=== PATIENT | female | born 1985 | race African-American/Black ===

== ENCOUNTER 2019-03-05 14:27 | Inpatient (IN) ==
[2019-03-05] MEDS ORDERED: ONDANSETRON 4 MG/2 ML VIAL IV PRN (15:58)
[2019-03-05] MEDS ORDERED: BUTORPHANOL 2 MG/ML VIAL IV PRN (15:58)
[2019-03-05] MEDS ORDERED: ACETAMINOPHEN 325 MG TABLET PO PRN (15:58)
[2019-03-05] MEDS ORDERED: OXYTOCIN/LR 20 UNIT/1,000 ML BAG IV SCH (16:00)
[2019-03-05] MEDS ORDERED: DINOPROSTONE VAG GEL 10 MG SYRINGE VAG PRN (16:02)
[2019-03-05 16:25] LABS: Basophils % 0.4 % (0.0-0.8); Eosinophils % 0.3 % (0.00-10.9); Hematocrit 37.6 VOL% (35.7-47.0); Hemoglobin 12.1 GM/DL (12.0-16.0); Immature Granulocytes % 0.7 %; Immature Granulocytes Absolute 0.05 #; Lymphocytes # 1.3 10*3/uL (1.4-4.0); Lymphocytes % 19.7 % (21.3-54.2); Mean Corpuscular HGB Conc 32.2 GM/DL (32-36); Mean Corpuscular Volume 86.4 FL (87-102); Mean Platelet Volume 10.3 FL (9.6-12.0); Monocytes % 9.4 % (1.7-12.7); Neutrophils % 69.5 % (38.7-73.9); Platelet Count 242 T/CUMM (130-400); Red Blood Count 4.35 MC/CUMM (3.8-5.5); Red Cell Distribution Width 14.7 % (9.3-17.3); White Blood Count 6.8 T/CUMM (4-12)
[2019-03-05 16:48] LABS: Albumin 2.9 G/DL (3.4-5.0); Bilirubin,Total 0.5 MG/DL (0.2-1.0); Calcium 9.2 MG/DL (8.5-10.1); Osmolality,Calculated 270.7 MOS/KG (273-304); Total Protein 7.1 G/DL (6.4-8.3); Uric Acid 3.4 MG/DL (2.6-6.0)
[2019-03-05] MEDS ORDERED: LACTATED RINGERS 1,000 ML IV ONE (18:45)
[2019-03-05] MEDS ORDERED: hydrOXYzine HCL 25 MG/1 ML VIAL IM PRN (18:45)
[2019-03-05] MEDS ORDERED: ePHEDrine 50 MG/ML AMP IV PRN (18:45)
[2019-03-05] MEDS ORDERED: CITRIC ACID/SODIUM CITRATE 30 ML UDCUP PO ONE (18:45)
[2019-03-05] MEDS ORDERED: diphenhydrAMINE 50 MG/1 ML VIAL IV PRN ×2 (18:45)
[2019-03-05] MEDS ORDERED: ONDANSETRON 4 MG/2 ML VIAL IV ONE (18:45)
[2019-03-05] MEDS ORDERED: NALOXONE 0.4 MG/ML VIAL IV PRN (18:45)
[2019-03-05] MEDS ORDERED: PROMETHAZINE 25 MG/1 ML VIAL IM ONE (18:45)
[2019-03-05] MEDS ORDERED: FAMOTIDINE 20 MG/2 ML VIAL IV ONE (18:45)
[2019-03-05] MEDS ORDERED: fentaNYL 2 MCG/ROPIV 0.2% EPID 100 ML EPIDURAL SCH (19:00)
[2019-03-05] MEDS: LACTATED RINGERS 1,000 ML IV SCH ×2 (20:22→21:14)
[2019-03-05 23:32] LABS: Apearance,Urine CLEAR (Clear); Bacteria,Urine Occasional /HPF (Few); Bilirubin,Urine Negative (Negative); Blood, Urine Negative (Negative); Glucose,Urine (UA) Negative (Negative); Hyaline Casts,Urine 12 /LPF (0-3); Ketones,Urine 80 mg/dL (Negative); Mucus,Urine Many /LPF (Occasional); Nitrite,Urine Negative (Negative); Protein,Urine 30 MG/DL; RBC,Urine 1 /HPF (0-4); Squamous Epithelial Cell,Urine Occasional /HPF (0-10); Urine Color Yellow (Yellow); Urine Specific Gravity 1.019 (1.001-1.035); WBC,Urine 5 /HPF (0-6)
[2019-03-06] MEDS ORDERED: OXYTOCIN/LR 20 UNIT/1,000 ML BAG IV SCH (02:00)
[2019-03-06] MEDS ORDERED: ALUMINUM/MAGNES/SIMETH MAX STR 30 ML UDCUP PO PRN (06:09)
[2019-03-06] MEDS: LACTATED RINGERS 1,000 ML IV SCH (07:12)
[2019-03-06] MEDS ORDERED: LIDOCAINE 1% 50 ML VIAL ONE (13:15)
[2019-03-06] MEDS ORDERED: METHYLERGONOVINE 0.2 MG/1 ML AMP ONE (13:16)
[2019-03-06] MEDS ORDERED: TRANEXAMIC ACID 1,000 MG/10 ML VIAL ONE (13:16)
[2019-03-06] MEDS ORDERED: OXYTOCIN/LR 20 UNIT/1,000 ML BAG IV ONE ×2 (13:16→18:49)
[2019-03-06] MEDS ORDERED: miSOPROStoL 200 MCG TABLET ONE (13:16)
[2019-03-06] MEDS ORDERED: CARBOPROST TROMETHAMINE 250 MCG/ML AMP IM ONE (13:16)
[2019-03-06 17:42] LABS: Cord Venous Blood HCO3 21.6 MMOL/L; Cord Venous Blood PCO2 42.9 MMHG; Cord Venous Blood PO2 20.1
[2019-03-06] MEDS ORDERED: oxyCODONE/ACETAMINOPHEN 5-325 MG TABLET PO PRN ×2 (18:49)
[2019-03-06] MEDS ORDERED: WITCH HAZEL PADS 100/JAR TOP PRN (18:49)
[2019-03-06] MEDS ORDERED: BISACODYL 10 MG SUPP RECTAL PRN (18:49)
[2019-03-06] MEDS ORDERED: ACETAMINOPHEN 325 MG TABLET PO PRN (18:49)
[2019-03-06] MEDS ORDERED: DIPH/TET/ACEL PERT BOOSTER VACCINE 0.5 ML VIAL IM ONE (18:49)
[2019-03-06] MEDS ORDERED: LANOLIN 50% CREAM 0.3 OZ TUBE TOP PRN (18:49)
[2019-03-06] MEDS ORDERED: HYDROCORTISONE 2.5% RECTAL CREAM 30 GM TUBE TOP PRN (18:49)
[2019-03-06] MEDS ORDERED: RHO(D) IMMUNE GLOBULIN 300 MCG SYRINGE IM ONE (18:49)
[2019-03-06] MEDS ORDERED: MEASLES/MUMPS/RUBELLA VACCINE 0.5 ML VIAL SUBCUT ONE (18:49)
[2019-03-06] MEDS ORDERED: BENZOCAINE 20%/MENTHOL 0.5% SPRAY 56 GM CAN TOP PRN (18:49)
[2019-03-06] MEDS: IBUPROFEN 800 MG TABLET PO PRN (19:14)
[2019-03-07] MEDS: DOCUSATE SODIUM 100 MG CAPSULE PO SCH ×3 (03:12→20:48)
[2019-03-07 05:57] LABS: Basophils % 0.2 % (0.0-0.8); Eosinophils % 0.2 % (0.00-10.9); Hematocrit 32.2 VOL% (35.7-47.0); Hemoglobin 10.6 GM/DL (12.0-16.0); Mean Corpuscular HGB Conc 32.9 GM/DL (32-36); Mean Platelet Volume 10.6 FL (9.6-12.0); Monocytes % 9.1 % (1.7-12.7); Neutrophils % 78.8 % (38.7-73.9); Platelet Count 217 T/CUMM (130-400); Red Blood Count 3.79 MC/CUMM (3.8-5.5); Red Cell Distribution Width 14.5 % (9.3-17.3); White Blood Count 16.8 T/CUMM (4-12)
[2019-03-07 05:58] LABS: Immature Granulocytes % 0.7 %; Immature Granulocytes Absolute 0.12 #; Lymphocytes # 1.9 10*3/uL (1.4-4.0)
[2019-03-07] MEDS ORDERED: BENZOCAINE/MENTHOL LOZENGE 18/BOX PO PRN (20:38)
[2019-03-08] MEDS: IBUPROFEN 800 MG TABLET PO PRN (04:09)
[2019-03-08 07:36] VITALS: BP 112/73
[2019-03-08] MEDS: DOCUSATE SODIUM 100 MG CAPSULE PO SCH (08:30)
== END 2019-03-08 15:30 | disposition home or self-care (01) | DRG 807 ==
LOC: N.LDOUT 14:27 → N.LD 14:28 → N.OB 03-06 21:38
PROVIDERS: ADMIT Obstetrics & Gynecology; ATTEND Obstetrics & Gynecology